=== PATIENT | male | born 1995 | race Two or more races ===

== ENCOUNTER 2019-09-27 13:00 | Emergency (ER) | payer MEDICAID ==
[~2019-09-27] VITALS: Ht 175.3 cm; Wt 99.8 kg
--- NOTE | 2019-09-27 13:08 | NUR ---
ED Nurse Note: PT walked in to ED for C/O productive cough with phlegm since last tuesday. PT denies recent travel. Afebrile.
[2019-09-27 13:13] VITALS: BP 116/74
--- NOTE | 2019-09-27 13:36 | NUR ---
ED Nurse Note: Xray @ bedside
[2019-09-27] MEDS ORDERED: ALBUTEROL SULF8.5 GM INH (14:06)
[2019-09-27] MEDS ORDERED: PROMETHAZINE-D118 ML ORAL (14:06)
--- NOTE | 2019-09-27 14:06 | Emergency Room Report ---
History of Present Illness General Chief Complaint: Upper Respiratory Illness Source: Patient Present Illness HPI 24 YO male presents to the ED c/o dry cough and chest congestion x1 week. Pt. is a smoker. Denies fevers, chills, ST, rhinorrhea, WILKINS or ear pain. Pt. denies hx of asthma or COPD. Denies recent travel. Denies ill contacts. Denies pain at this time. Denies CP, SOB, Dyspnea or palpitations. Allergies: Coded Allergies: No Known Allergies (Unverified , 09/27/19) Patient History Past Medical History: see triage record Past Surgical History: none Pertinent Family History: none Social History: Reports: smoking Reviewed Nursing Documentation: PMH: Agreed; PSxH: Agreed Nursing Documentation-PMH Past Medical History: No History, Except For Review of Systems All Other Systems: negative except mentioned in HPI Physical Exam Vital Signs Date Time Temp Pulse Resp B/P (MAP) Pulse Ox O2 Delivery O2 Flow Rate FiO2 09/27/19 13:02 98.4 97 19 116/74 (88) 96 Room Air Sp02 EP Interpretation: reviewed, normal General Appearance: no apparent distress, alert, GCS 15, non-toxic Head: normocephalic, atraumatic Eyes: bilateral eye normal inspection, bilateral eye PERRL ENT: hearing grossly normal, normal voice Neck: full range of motion Respiratory: chest non-tender, lungs clear, normal breath sounds, no respiratory distress, no accessory muscle use, no wheezing, speaking full sentences Cardiovascular #1: regular rate, rhythm Musculoskeletal: normal range of motion, gait/station normal, non-tender Neurologic: alert, motor strength/tone normal, oriented x3, sensory intact, responsive, speech normal Psychiatric: judgement/insight normal Skin: no rash, normal color Lymphatic: no adenopathy Medical Decision Making PA Attestation Dr. Mujica Is my supervising Physician whom patient management has been discussed with. Diagnostic Impression: Primary Impression: Bronchitis ER Course 24 YO male presents to the ED c/o dry cough and chest congestion x1 week. Pt. is a smoker. Denies fevers, chills, ST, rhinorrhea, WILKINS or ear pain. Pt. denies hx of asthma or COPD. Denies recent travel. Denies ill contacts. Denies pain at this time. Denies CP, SOB, Dyspnea or palpitations. Ddx considered but are not limited to URI, pneumonia, PE, strep pharyngitis, meningitis. Vital signs: Pt.is afebrile VS are WNL H&PE are most consistent with bronchitis ORDERS: none required at this time, the diagnosis is clinical ED INTERVENTIONS: None required at this time. DISCHARGE: At this time pt. is stable for d/c to home. Will provide printed patient care instructions, and any necessary prescriptions. Care plan and follow up instructions have been discussed with the patient prior to discharge. Chest X-Ray Diagnostic Results Chest X-Ray Diagnostic Results : Chest X-Ray Ordered: Yes # of Views/Limited/Complete: 1 View Indication: Other - cough x 1 week EP Interpretation: Yes SOWMYA Xray: Interpretation reviewed, by supervising MD, and agrees with findings. Interpretation: no consolidation, no effusion, no pneumothorax, no acute cardiopulmonary disease Impression: No acute disease Electronically Signed by: Bella Clark PA-C Last Vital Signs Date Time Temp Pulse Resp B/P (MAP) Pulse Ox O2 Delivery O2 Flow Rate FiO2 09/27/19 13:13 97 19 Room Air 09/27/19 13:13 98.4 116/74 96 Disposition: HOME, SELF-CARE Condition: Stable Referrals: NON PHYSICIAN (PCP) Patient Instructions: Cough, Adult Additional Instructions: Take medications as directed. Follow up with a Primary Care Provider in 3-5 days, even if your symptoms have resolved. --Please review list of primary care clinics, if you do not already have a primary care provider Return sooner to ED if new symptoms occur, or current symptoms become worse. - Please note that this Emergency Department Report was dictated using [employer] worker technology software, occasionally this can lead to erroneous entry secondary to interpretation by the dictation equipment. Bella Clark Sep 27, 2019 14:06
[2019-09-27 14:13] VITALS: BP 123/76
--- NOTE | 2019-09-27 14:13 | NUR ---
ER DISCHARGE NOTE: Patient is cleared to be discharged per ERMD, pt is aox4, on room air, with stable vital signs as documented. pt was given dc and prescription instructions and was able to verbalize understanding. pt id band removed. pt is able to ambulate with steady gait. pt took all belongings.
--- NOTE | 2019-09-27 14:47 | Diagnostic Imaging Report ---
Indication: Cough Comparison: None A single view chest radiograph was obtained. Findings: There is a questionable infiltrate in the left perihilar basilar region. Please correlate clinically. Heart size is normal. Costophrenic angles are sharp. There is no evidence of a pleural effusion. Bones appear normal. IMPRESSION: Questionable infiltrate left lung base
== END 2019-09-27 14:13 | disposition home or self-care (01) ==
LOC: EMR 13:26
DX: J40 Bronchitis, not specified as acute or chronic (principal); F17.200 Nicotine dependence, unspecified, uncomplicated
CPT/HCPCS: 71045; Z7502; 99283